=== PATIENT | male | born 1950 | race Caucasian/White ===

== ENCOUNTER 2019-03-14 07:09 | Emergency (ER) | payer BC, OTHER ==
[2019-03-14 07:32] VITALS: BP 135/79
[2019-03-14] MEDS ORDERED: DOXYcycline CAP(*) 100 MG PO ONE (07:38)
--- NOTE | 2019-03-14 07:46 | UC ---
UC General HPI - HPI Summary HPI Summary: 68 year old male presents to the urgent care for evaluation of a tick bite on his right pectoral region. Pt noticed it the night before and removed it then. He believes it was attached for about 2 days. Pt denies fever, chills, arthalgia , myaglia, chest pain, SOB, N/V, and diarrhea. - History of Current Complaint Chief Complaint: [place] Stated Complaint: TICK ON UPPER CHEST Time Seen by Provider: 03/14/19 07:29 Hx Obtained From: Patient Pain Intensity: 0 - Allergy/Home Medications Allergies/Adverse Reactions: Allergies Allergy/AdvReac Type Severity Reaction Status Date / Time No Known Allergies Allergy Verified 07/27/14 13:53 Home Medications: Home Medications Chlorthalidone 50 mg PO DAILY 03/14/19 [History Confirmed 03/14/19] Metformin ER (NF) 500 mg PO BID 03/14/19 [History Confirmed 03/14/19] PMH/Surg Hx/FS Hx/Imm Hx Cardiovascular History: Hypertension - Surgical History Surgical History: Yes Surgery Procedure, Year, and Place: prostatectomy 05/30/2014 (HAVE OP REPORT FROM [facility] - CLEARED BY DR YTLER) - Social History Alcohol Use: Rare Substance Use Type: None Smoking Status (MU): Never Smoked Tobacco Have You Smoked in the Last Year: No - Immunization History Most Recent Influenza Vaccination: never Most Recent Tetanus Shot: within 10 years Most Recent Pneumonia Vaccination: never Review of Systems All Other Systems Reviewed And Are Negative: Yes Constitutional: Positive: Negative. Negative: Fever, Chills, Fatigue Skin: Positive: Negative. Negative: Rash ENT: Positive: Negative. Negative: Sore Throat Respiratory: Positive: Negative. Negative: Shortness Of Breath, Cough Cardiovascular: Positive: Negative. Negative: Palpitations, Chest Pain Gastrointestinal: Positive: Negative. Negative: Abdominal Pain, Vomiting, Diarrhea, Nausea Musculoskeletal: Positive: Negative. Negative: Arthralgia, Decreased ROM, Myalgia Neurological: Positive: Negative. Negative: Headache, Weakness Physical Exam Triage Information Reviewed: Yes Appearance: Well-Appearing, No Pain Distress, Well-Nourished Vital Signs: Initial Vital Signs Temp 97.1 F 03/14/19 07:19 Pulse 55 03/14/19 07:19 Resp 18 03/14/19 07:19 BP 135/79 03/14/19 07:19 Pulse Ox 98 03/14/19 07:19 Vital Signs Reviewed: Yes Eyes: Positive: Conjunctiva Clear ENT: Positive: Normal ENT inspection, Hearing grossly normal, Pharynx normal Neck exam: Normal Neck: Positive: Supple, Nontender Respiratory: Positive: Chest non-tender, Lungs clear, Normal breath sounds Cardiovascular Exam: Normal Cardiovascular: Positive: RRR, No Murmur, Pulses Normal Abdomen Description: Positive: Nontender Musculoskeletal: Positive: Strength Intact, ROM Intact Neurological: Positive: Alert, Muscle Tone Normal Skin: Positive: Other - Tick bite site on the right pectoral area is with a small area of surrounding erythema. No residual tick parts noted Course/Dx - Course Course Of Treatment: Pt presents after removing a tick from his right pectoral area. He states the tick was attached for about 2 days. He denies any fever, chills, joint pains, rashes, chest pain, and SOB. The tick site has a small area of erythema along the border of it and there was not tick parts present. Pt was treated prophylactically with 200mg of doxycycline today. He was instructed to follow up with any fever, chills, joint pain, myalgias, rashes, or any new symptoms. Patient was seen in conjunction with the physician volleyball assistant coach student. All represented to history, physical and medical decision-making her mind. Tick was fully removed. - Differential Dx - Multi-Symptom Differential Diagnoses: Other - tick bite, lyme disease, foreign body - Diagnoses Provider Diagnosis: Tick bite Discharge - Sign-Out/Discharge Documenting (check all that apply): Patient Departure All imaging exams completed and their final reports reviewed: No Studies - Discharge Plan Condition: Improved Disposition: HOME Patient Education Materials: Tick Bite (ED) Referrals: Justice Roldan MD [Primary Care Provider] - Additional Instructions: Dress the area with bacitracin. Return with fever, joint aches, red rash, worse , new symptoms or other concerns as discussed. - Billing Disposition and Condition Condition: IMPROVED Disposition: Home - Attestation Statements Document Initiated by Michael: Kalani
== END 2019-03-14 08:02 | disposition home or self-care (01) ==
LOC: UCEAST 07:09
DX: S20.361A Insect bite (nonvenomous) of right front wall of thorax, initial encounter (principal); L53.9 Erythematous condition, unspecified; W57.XXXA Bitten or stung by nonvenomous insect and other nonvenomous arthropods, initial encounter; Y92.9 Unspecified place or not applicable; I10 Essential (primary) hypertension
CPT/HCPCS: 99212; A9270-GY; G0463